=== PATIENT | female | born 1980 | race Caucasian/White ===

== ENCOUNTER 2024-11-17 03:17 | Day surgery (SDC) | payer OTHER, SELFPAY ==
--- OUTSIDE RECORDS SUMMARY | 2024-10-21 10:00 | XMS_ITS ---
Author Organization 1 OF Kaylen ortega [facility] Address [address] [address] Care Team Providers Care Trade Manager Name Role Phone Simba Carrera MD Primary Care Provider Michael Gallego Allergies Allergen (clinical drug ingredient) Drug/Non Drug Allergy documented on EMR Reaction Allergy Type Onset Date Status tetanus immune globulin Tetanus Immune Globulin Unknown Drug Allergy Active REASON FOR VISIT Rt foot bunion / metatarsal's bent in foot. Needing Surgery Vital Signs Height 69 in 10/21/2024 Weight 165 lbs 10/21/2024 BMI 24.36 kg/m2 10/21/2024 Encounters Encounter Location Date Provider Diagnosis 1 OF Kaylen Camilo [facility] [address] [address] 10/21/2024 Michael Camilo Assessments Encounter Date Diagnosis (ICD Code) Assessment Notes Treatment Notes Treatment Clinical Notes Section Notes 10/21/2024 Other Plan: - Detailed treatment plan: Discussed use of custom orthotics for arch support to address overpronation, which could be beneficial pre- and post-operatively. - Surgical options discussed: Two surgical approaches for bunion correction were reviewed. - 1. A traditional bunionectomy with a faster recovery (walking in a surgical boot immediately, back in a tennis shoe in approximately one month). Activity would be limited to 10-15 minutes per hour for the first 1-2 weeks. - 2. A more extensive procedure to address the first ray hypermobility, which involves a longer recovery and higher complication risk but can provide a significant correction. - Recommended proceeding with surgery sooner rather than later to prevent progression to a hammertoe deformity and potential ligamentous rupture of the second MTPJ. - Lifestyle or self-care recommendations: Advised that wider, more comfortable shoes can manage symptoms, but may not be cosmetically appealing. - Follow-up: Patient to determine timing for surgery. Discussed scheduling challenges around due to high demand. Patient will investigate her insurance situation (deductible renewal on 11/05, potential switch to 's [employer] insurance) and contact the office to schedule surgery when ready. Interventions: - No procedures performed during visit. Evaluation: - Not applicable. Additional Notes: - Patient education: Educated on the genetic component of bunions and the role of overpronation. Explained the pros and cons of different surgical procedures, including recovery expectations. Advised that a traditional procedure would likely provide the desired relief and does not typically require a period of non-weight bearing. - Any concerns or preferences expressed by the patient regarding their treatment plan: Expressed preference for a winter surgery () to align with work closure. Patient will investigate insurance coverage details before proceeding with scheduling. Plan Of Treatment Treatment Notes Assessment Notes Other Plan: - Detailed treatment plan: Discussed use of custom orthotics for arch support to address overpronation, which could be beneficial pre- and post-operatively. - Surgical options discussed: Two surgical approaches for bunion correction were reviewed. - 1. A traditional bunionectomy with a faster recovery (walking in a surgical boot immediately, back in a tennis shoe in approximately one month). Activity would be limited to 10-15 minutes per hour for the first 1-2 weeks. - 2. A more extensive procedure to address the first ray hypermobility, which involves a longer recovery and higher complication risk but can provide a significant correction. - Recommended proceeding with surgery sooner rather than later to prevent progression to a hammertoe deformity and potential ligamentous rupture of the second MTPJ. - Lifestyle or self-care recommendations: Advised that wider, more comfortable shoes can manage symptoms, but may not be cosmetically appealing. - Follow-up: Patient to determine timing for surgery. Discussed scheduling challenges around due to high demand. Patient will investigate her insurance situation (deductible renewal on 11/05, potential switch to 's [employer] insurance) and contact the office to schedule surgery when ready. Interventions: - No procedures performed during visit. Evaluation: - Not applicable. Additional Notes: - Patient education: Educated on the genetic component of bunions and the role of overpronation. Explained the pros and cons of different surgical procedures, including recovery expectations. Advised that a traditional procedure would likely provide the desired relief and does not typically require a period of non-weight bearing. - Any concerns or preferences expressed by the patient regarding their treatment plan: Expressed preference for a winter surgery () to align with work closure. Patient will investigate insurance coverage details before proceeding with scheduling. Next Appt Details Provider Name:Michael Camilo, 12/23/2024 03:00:00 PM, [address], [place], [address], Provider Name:Michael Camilo, 01/20/2025 09:00:00 AM, [address], [place], [address], History and Physical Notes * HPI (History of Present Illness) Category Sub-Category Detail Notes Category Not es MA assisting with visit: Chart Prep Purnima Examination Category Sub-Category Detail Notes Category Not es General Examination Mental status: Cooperative, Oriented to person, place and time, Mood and affect: normal, Judgement and intellect: normal with appropriate response to questions Shoes today: tennis shoes Constitutional / Appearance: No acute di stress , Well nourished, Appropriate personal hygiene Lower Extremity VASCULAR: Pulses: DP and PT pulse s, palpable, bilateral Temperature gradient: warm from proximal to distal, bilateral Pedal hair: present, bilateral Capillary refill at distal toes less mercedes n 3 seconds Lower Extremity NEURO: Neurological status: norm al sensation to sharp/ dull with normal and symmetric muscle tone bilateral Lower Extremity MSK: Left lower extremit y inspection and palpation: No palpable masses or nodules noted. Right lower extremity inspec tion and palpation: No palpable masses or nodules noted. Gait Gait unremarkable wi th normal posture, propulsion and balance Diagnostic Studies: X-rays of left lower extremi ty: 3 views of left foot: Significant findings include: X-rays of right lower extremity: 3 views of right foot: , Significant findings include: Lower Extremity DERM: Skin: well hydra dean , no suspicious lesions, without interdigital maceration, bilateral Progress Notes * Jennifer ELLISDOB:[birth year] (44 yo F)Acc No.[id number]:10/21/2024 Progress Notes Patient: Jennifer Leblanc Provider: Kaylen Camilo DPM :1980 A ge:44 Y S ex:Female Date:10/21/2024 Address:[address] [place], [place] [id number] Pcp:Simba Carrera MD Subjective: * Chief Complaints: * R t foot bunion / metatarsal's bent in foot. Needing Surgery * HPI: Janet Sorensen assisting with visit:: 44 y/o female PTO for right foot pain, mostly at the RT bunion, radiating through top of her foot.? - Presents for evaluation of bunions, referred by Dr. Solis who felt the case was complex due to concern for turned metatarsals. - Right foot bunion present for 10-12 years. Reports discomfort and pain after 4-5 hours of standing. - No significant pain reported in the left foot. - PMHx: Possible fracture to the right ankle/leg at age 12. Prior evaluation for leg length discrepancy ~12 years ago, prescribed shoe inserts which were discontinued after one week due to back pain. - Family Hx: Sister had bunion surgery with a good outcome. - Medications: Not discussed. 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 Wears wider shoes, men's tennis shoes, or skate shoes to accommodate the bunion, but notes they are flat and not very comfortable. Has worn holes in shoes at the bunion site. - Allergies: Not discussed. Chart Prep Keke harper. * Medical History: Irritable bowel syndrome (IBS) Anxiety Medical History Verified * Surgical History: No Surgical History documented. Surgical History verified. * Hospitalization/Major Diagno stic Procedure: No Hospitalization Documented. Hospitalization Verified. * Family History: N o Family History documented.. F amily History Verified.. * Social History: Social History Verified. No Social History documented. * Medications: N one * Allergies: T etanus Immune GlobulinyesAllergies Verified. Objective: * Vitals: W t:165lbs, Wt-k.84 kg, Ht:69in, BMI:24.36Index. * Examination: G eneral Examination: Constitutional / Appearance: N o acute distress , Well nourished, Appropriate personal hygiene. Mental status: C ooperative, Oriented to person, place and time, Mood and affect: normal, Judgement and intellect: normal with appropriate response to questions. Shoes today: t shan shoes. L ower Extremity VASCULAR: : Pulses: D P and PT pulses, palpable, bilateral. Temperature gradient: w arm from proximal to distal, bilateral. Pedal hair: p resent, bilateral. Capillary refill at distal toes l ess than 3 seconds. ? L ower Extremity DERM: : Skin: w ell hydrated , no suspicious lesions, without interdigital maceration, bilateral. L ower Extremity NEURO: : Neurological status: n ormal sensation to sharp/ dull with normal and symmetric muscle tone bilateral. L ower Extremity MSK: : Gait G ait unremarkable with normal posture, propulsion and balance. Left lower extremity inspection and palpation: N o palpable masses or nodules noted.. Right lower extremity inspection and palpation: N o palpable masses or nodules noted. . D iagnostic Studies: : X-rays of left lower extremity: 3 views ofleftfoot: Significant findings include: . X-rays of right lower extremity: 3 views ofrightfoot: , Significant findings include: . Plan: * Treatment: * Preventive Medicine: Counseling: C are goal follow-up plan: BMI counseling provided to patient:?Lifestyle education * Billing Information: * Procedure Codes: 35412 X-RAY FOOT (3 views). Modifiers: LT 28111 X-RAY FOOT (3 views). Modifiers: RT Images * B/L foot photos * Electronic signature of Bita Camilo DPM on 11/17/2024 at 03:20 AM CDT Sign off status: Pending * Provider: Kaylen Camilo DPM Date: 0 10/21/2024 Generated for Destini chan/Sami/eThernesto on: 1 03:20 AM CDT
[2024-11-11 10:37] VITALS: BMI 24.3
--- NOTE | 2024-11-11 11:02 | PC.NURSE ---
[facility] has started construction of its new state of the art ER which will open Spring 2026. With this, we anticipate parking may be a challenge for some our surgical patients and families. Parking spaces are limited but are available for all Surgical, obstetrics, and ER patients sharing this lot. If you arrive and find you are having a hard time finding a parking space, please note that we understand the challenges, please drive around the hospital and park near Hospital Entrance 1. When you enter this entrance, you can ask a volunteer to direct or take you back to the surgical waiting area to check in. We appreciate everyone?s understanding of these expected challenges while we build for your future. Report to the Outpatient Waiting Room, entrance under the green pavilion located off [address], at time 0600 on 11-17-24. Planned Procedure Time: 0730.? Time changes happen often and if your time is changed the preop area will call you the afternoon before. - You and your visitor will be asked to self-screen and do not enter if you have any COVID symptoms. Please call surgeon if you need to reschedule. - A mask is optional within the hospital at this time. Patients may have clear liquids (water, carbonated beverages, clear teas, apple juice) until 3 hours prior to surgery with a maximum of 20 ounces. 0430 - No food from midnight until time of surgery and no smoking, or chewing tobacco (or any form of nicotine). No chewing gum, candy or mints. - Infants may have breast milk until 4 hours before surgery, infant formula 6 hours prior to surgery. - Children will be allowed to drink immediately following surgery.? If applicable, please bring a bottle or sippy cup to assist with drinking. Juice, water, soda, and popsicles are readily available.? For infants on formula, please bring formula the day of surgery.? Pacifiers are allowed. Take only the following medications with a SIP of water on the morning of surgery: NONE DO NOT STOP ANY OF YOUR OTHER PRESCRIPTION MEDICATIONS PRIOR TO SURGERY EXCEPT THE FOLLOWING Hold all vitamins and supplements for 3 days per anesthesiologist. Medications to discontinue per physician: N/A Please no make-up, nail icelandic, hairspray, perfume, deodorant, or body powder the day of surgery.? No jewelry (including any body piercings) or valuables the day of surgery, leave them at home.? Please take a shower or bath the night before, or the morning of, surgery with an antibacterial soap.? Wear comfortable, loose fitting clothing.? Children are encouraged to wear pajamas. - Jewelry must be removed prior to entering the operating room.? Rings and piercings that are not removed may be cut off. - The hospital will not accept responsibility for valuables.? - Please leave all valuables, including medications, at home the day of surgery. If you are going home after surgery, a licensed lokie driver must drive you home.? - NO public transportation without another adult if you receive anesthesia. - We recommend that an adult stay with you for 24 hours following discharge. - We also recommend that you do not drive, make important decision, drink alcoholic beverages, or take any drugs that were not prescribed by your health care provider for at least 24 hours after your discharge time. For Pediatric surgeries, we recommend two adults accompany the child home. Follow any additional instructions given to you from your surgeon. Telephone instructions given to Jennifer Ellis and asked if any additional questions and then verbalized understanding. Patient advised to call surgeon office or pre surgery nurse liaison [phone] if any additional questions.
--- OUTSIDE RECORDS SUMMARY | 2024-11-17 03:20 | XMS_ITS | Clinical Summary ---
Author Organization [facility] [address] [place] [address] [address] [address] [place] [address] Care Team Providers Care Fusing Machine Operator Name Role Phone Simba Carrera MD Primary Care Provider Allergies Active Allergy Reactions Criticality Noted Date Comments Dpt-Haemophilus Ps(Tet.Conj.) Shortness of Breath/Wheezing High 12/12/2022 DPT immunization- happened as a child per patient. Medications L. acidophilus/L. rhamnosus (PROBIOTIC ORAL) Take by mouth. 1 probiotic orally daily Active linaCLOtide (LINZESS) 145 mcg capsuleIndication s:Slow transit constipation Take 1 Capsule (145 mcg) by mouth daily before breakfast. 90 Capsule 2 4 Active Active Problems Problem Noted Date Diagnosed Date Slow transit constipation 11/08/2022 Change in bowel habit 11/08/2022 Encounters Date Type Department Care Team Description 08/20/2024 External Device Data [facility]STRACTION Provider, Abstract 08/19/2024 External Device Data [facility] Provider, Abstract from Last 3 Months Family History Medical History Relation Name Comments Diabetes Maternal Grandmother Thyroid Disease Mother Thyroid Disease Sister Relation Name Status Comments Maternal Grandmother Mother Sister Social History Tobacco Use Types Packs/Day Years Used Date Smoking Tobacco: Every Day Cigarettes 0.5 25 Tobacco Cessation:Ready to Q uit: Not Asked; Counseling Given: Not Answered Alcohol Use Standard Drinks/Week Comments Not Currently 4 (1 standard drink = 0.6 oz pur e alcohol) Feeling Safe Answer Date Recorded Are you in a relationship wi th someone who hurts you emotionally and/or physically? No 12/19/2022 Comments No Sex and Gender Information Value Date Recorded Sex Assigned at Female 11/15/2022 11:31 AM CDT Legal Sex Female 6:35 AM CDT Gender Identity Female 11/15/2022 11:31 AM CDT Sexual Orientation Straight 11/15/2022 11 :31 AM CDT Last Filed Vital Signs Vital Sign Reading Time Taken Comments Blood Pressure 108/79 03/09/2023 2:39 PM LENS BLOCKER Pulse 68 03/09/2023 2:39 PM LENS BLOCKER Temperature 36.7 C (98 F) 03/09/2023 2:39 PM LENS BLOCKER Respiratory Rate 18 12/19/2022 12:15 PM LENS BLOCKER Oxygen Saturation 97% 03/09/2023 2:39 PM LENS BLOCKER Inhaled Oxygen Concentration - - Weight 78.5 kg (173 lb) 03/09/2023 2:39 PM LENS BLOCKER Height 172.7 cm (5' 8) 03/09/2023 2:39 PM LENS BLOCKER Body Mass Index 26.3 03/09/2023 2:39 PM LENS BLOCKER Plan of Treatment Health Maintenance Due Date Last Done Comments DTAP/TDAP/TD VACCINES (1 - Tdap) 06/03/1999 HEPATITIS B VACCINES (1 of 3 - 19+ 3-dose series) 06/03/1999 HPV/Cotest (21-29) 2001 HPV VACCINES (1 - 3-dose SCD M series) 06/03/2007 CERVICAL CANCER SCREENING 2010 HPV/Cotest (30-65) 2010 PAP SMEAR 2010 BREAST CANCER SCREENING 02/23/2024 02/22/19 24, 02/22/2023, 01/30/2023, Additional history exists INFLUENZA VACCINE (#1) 2024 COLORECTAL SCREENING 12/19/2029 12/19/2022, 12/19/2022, 12/19/2022 Procedures Procedure Name Priority Date/Time Associated Diagnosis Comments COLONOSCOPY REPORT 12/19/2022 12 :51 PM LENS BLOCKER from Last 3 Months or Most Recently Relevant to Health Maintenance Results * COLONOSCOPY REPORT (12/19/2022 12:51 PM LENS BLOCKER) Narrative Procedure Note Remberto uHgo MD - 12/19/2022 12:51 PM CST [facility] Endoscopy Patient Name: Jennifer Ellis Procedure Date: 12/19/2022 Date of : 1980 Attending MD: Remberto Hugo MD, Procedure: Colonoscopy Indications: Change in bowel habits Providers: Remberto Hugo MD Referring MD: Simba Carrera MD Medicines: Monitored Anesthesia Care Complications: No immediate complications. Procedure: Informed consent was obtained for the procedure, including moderate sedation after risks were discussed. Based on the pre-procedure assessment, including review of the patient's medical history, medications, allergies, and review of systems, the patient was deemed to be an appropriate candidate for sedation. A timeout was performed. Continuous ECG monitoring, pulse oximetry, blood pressure monitoring, and direct observation were performed. The Colonoscope was introduced through the anus and advanced to the cecum, identified by appendiceal orifice and ileocecal valve. The colonoscopy was performed without difficulty. The patient tolerated the procedure well. The quality of the bowel preparation was good. The quality of the bowel preparation was evaluated using the BBPS (Poneto Bowel Preparation Scale) with scores of: Right Colon = 3, Transverse Colon = 3 and Left Colon = 3 (entire mucosa seen well with no residual staining, small fragments of stool or opaque liquid). The total BBPS score equals 9. Findings: The perianal and digital rectal examinations were normal. A diminutive polyp was found in the cecum. The polyp was sessile. The polyp was removed with a cold snare. Resection and retrieval were complete. The exam was otherwise without abnormality. Impression: - One diminutive polyp in the cecum, removed with a cold snare. Resected and retrieved. - The examination was otherwise normal. Recommendation: - Discharge patient to home (with escort). - Await pathology results. - Repeat colonoscopy in 7 years for surveillance based on pathology results. - Start [facility] Procedure Code(s): --- Professional --- 58990, Colonoscopy, flexible; with removal of tumor(s), polyp(s), or other lesion(s) by snare technique CPT copyright 2020 [employer]. All rights reserved. The codes documented in this report are preliminary and upon breaker hand review may be revised to meet current compliance requirements. Remberto Hugo MD 12/19/2022 12:51:40 PM This report has been signed electronically. Number of Addenda: [id number], [place] [address] Remberto Hugo MD GI PROCEDURE ORDERABLES Final Result from Last 3 Months or Most Recently Relevant to Health Maintenance Insurance Absolute Antibody [facility] [id number] Care Teams Fusing Machine Operator Relationship Specialty Start Date End Date Simba Carrera MD [address] [facility] [address] [place] [address] PCP - General Family Practice 10/31/22
--- OUTSIDE RECORDS SUMMARY | 2024-11-17 03:20 | XMS_ITS | Clinical Summary ---
Author Organization [facility] Address [address] [place] [address] Care Team Providers Care Scales Inspector Name Role Phone Simba Carrera MD Primary Care Provider [phone] Allergies No known active allergies Medications ketorolac (TORADOL) 10 mg tablet Take 1 tablet (10 mg total) by mouth every 6 (six) hours as needed for pain 20 tablet 03/18/2024 Active Social History Tobacco Use Types Packs/Day Years Used Date Smoking Tobacco: Never Assessed Personal Safety Answer Date Recorded Have you ever been in or are you currently in a harmful physical or emotional relationship or is someone making you feel afraid or unsafe? Denies 03/18/2024 Comments Unknown Sex and Gender Information Value Date Recorded Sex Assigned at Not on file Legal Sex Female 6:09 PM OFFBEARER Gender Identity Not on file Sexual Orientation Not on file Last Filed Vital Signs Vital Sign Reading Time Taken Comments Blood Pressure 138/90 03/18/2024 9:55 PM OFFBEARER Pulse 60 03/18/2024 9:55 PM OFFBEARER Temperature 36.7 C (98.1 F) 03/18/2024 5:33 PM OFFBEARER Respiratory Rate 18 03/18/2024 9:55 PM OFFBEARER Oxygen Saturation 99% 03/18/2024 9:55 PM OFFBEARER Inhaled Oxygen Concentration - - Weight 76 kg (167 lb 8.8 oz) 03/18/2024 5:33 PM OFFBEARER Height 175.3 cm (5' 9) 03/18/2024 5:33 PM OFFBEARER Body Mass Index 24.74 03/18/2024 5:33 PM OFFBEARER Plan of Treatment Health Maintenance Due Date Last Done Comments Cervical Cancer Screening 1980 Depression Screening 1980 Hepatitis C Screening 1980 DTaP/Tdap/Td Vaccine (1 - Tdap) 06/03/1991 Varicella Vaccines (1 of 2 - 13+ 2-dose series) 1993 Hepatitis B Screening 1998 Regular Well Visit/Exam 18-64 1998 HPV Vaccines (1 - 3-dose SCD M series) 06/03/2007 Breast Cancer Screening-Mammogram 01/31/2024 01/30/2023 Influenza Vaccine (#1) 2024 4, 11/22/2012 Pneumococcal vaccine <65 Aged Out No longer eligible based on patient's age to complete this topic Insurance CHOICE PLUS Care Teams Scales Inspector Relationship Specialty Start Date End Date Simba Carrera MD [address] [facility] [address] [place] [address] PCP - General 09/20/18
--- OUTSIDE RECORDS SUMMARY | 2024-11-17 03:20 | XMS_ITS | Patient Health Record ---
Author Organization 1 OF Kaylen ortega [facility] Address [address] [facility] [address] [address] Care Team Providers Care Program Arranger Name Role Phone Simba Carrera MD Primary Care Provider Michael Gallego [phone] Allergies Allergen (clinical drug ingredient) Drug/Non Drug Allergy documented on EMR Reaction Allergy Type Onset Date Status tetanus immune globulin Tetanus Immune Globulin Unknown Drug Allergy Active Reason For Referral No Information Vital Signs Height 69 in 10/21/2024 Weight 165 lbs 10/21/2024 BMI 24.36 kg/m2 10/21/2024 Encounters Encounter Location Date Provider Diagnosis 1 OF Kaylen Camilo [facility] [address] [employer] [address] 10/21/2024 Michael Camilo 1 OF Kaylen Camilo Locationary [place] [address] [employer] [address] 11/10/2024 Michael Camilo Assessments Encounter Date Diagnosis (ICD [...] renewal on 11/05, potential switch to '[employer] insurance) and contact the office to schedule [...] before proceeding with scheduling. Plan Of Treatment Next Appt Details Provider Name:Michael Camilo, 12/23/2024 03:00:00 PM, [address], [place], [address], Provider Name:Michael Camilo, 01/20/2025 09:00:00 AM, [address] , [place], [address], Insurance Providers Payer Name Payer Address Payer Phone Subscriber Number Group Number Insured Name Patient Relationship to Insured Coverage Start Date Coverage End Date [facility] [address] [place], [place] [phone] [id number] Jennifer Ellis Self - patient is the insured Medical (General) History Medical History History ICD Code Irritable bowel syndrome (IBS) Anxiety
[2024-11-17 07:10] VITALS: BP 112/79; PULSE 67; RESP 14; TEMP 36.7; O2SAT 99; BMI 24.6
--- NOTE | 2024-11-17 07:21 | P.HP_ITS ---
History of Present Illness History of Present Illness Consent: Risks, benefits, and alternatives have been discussed and questions answered. Patient agrees to proceed with procedure. Chief complaint: abnormal uterine bleeding Narrative: Jennifer Ellis is a 44 year old female with with prolonged bleeding each month. It was recommended to undergo D&C hysteroscopy to further evaluate. Risks infection, bleeding, perforation, and possible pathology are discussed. Patient voices understanding and agrees to proceed. Review of Systems Review of Systems: not repeated day of surgery; patient states no changes in status [facility] Past Medical History Medical History (Updated 11/17/24 @ 07:25 by Mona Mccauley MD) History of depression History of molar History of ectopic History of miscarriage X2 (normal spontaneous vaginal delivery) Surgical History Surgical History (Updated 11/17/24 @ 07:24 by Mona Mccauley MD) History of bilateral tubal ligation Social History Social History Smoking packs per day: 0.5 Smoking cigarettes per day: 10.0 Years smoked: 25 Smoking pack-years: 12.50 Smoking status: Current every day smoker Tobacco type: cigarettes Second hand tobacco smoke exposure: Yes Alcohol intake: never Substance use: current Substance use type: marijuana Other substance usage details: sometimes Living arrangements: with family Spiritual care concerns: No Meds Home Medications and Allergies Home Medications ?Medication ?Instructions ?Recorded ?Confirmed ?Type No Home Medications 11/11/24 11/11/24 H istory Allergies Allergy/AdvReac Type Severity Reaction Status Date / Time DPT Allergy Severe Difficulty Uncoded 11/11/24 10:58 Breathing Exam Const: General: healthy appearing and alert Orientation/consciousness: patient oriented x3 Resp: Effort & Inspection: normal respiratory effort GI: GI Palp: Yes Soft to palpation, No Tenderness to palpation present (GI) and No Palpable mass present : External Female Exam: normal external appearance Speculum Exam - Vagina: normal appearance of the vagina and normal vaginal discharge Speculum Exam - Cervix: normal appearance of the cervix Bimanual exam- vagina & uterus: uterine size normal and consistency normal Bimanual Exam- Adnexa, other: normal adnexae and No adnexal tenderness Neuro: General: patient oriented x3 Assessment and Plan Assessment and plan (1) Menorrhagia: Code(s): N92.0 - Excessive and frequent menstruation with regular cycle Status: Acute Assessment and Plan: Plan to proceed with D&C hysteroscopy
--- NOTE | 2024-11-17 07:21 | WPDHPUPDATE1 ---
History and Physical Update Update Date/Time: 11/17/24 07:21 History and Physical has been reviewed, including an updated exam of the patient. There are NO changes in the patient's condition. Risks, benefits, and alternatives have been discussed and questions answered. Patient agrees to proceed with procedure.
[2024-11-17 07:32] LABS: BEDSIDEPREGUCG Negative (Negative)
[2024-11-17] MEDS: LACTATED RINGERS 1,000 ML 30 ML IV CONT (07:40)
[2024-11-17] MEDS: ACETAMINOPHEN 500 MG TABLET 1000 MG PO (07:48)
--- NOTE | 2024-11-17 08:12 | P.PNAN_ITS ---
Anes - Initial Pre Proc Eval Procedure: Operation Date: 11/17/24 09:00 Proposed Procedures p Hysteroscopy Dilation and Curettage - Mona Mccauley MD Date/Time: 11/17/24 08:12 Surgeon: Mona Mccauley MD Pre Op Diagnosis: abnormal uterine bleeding Patient Data Age: 44 Gender: F Height: 1.75 m Weight: 75.65 kg Last Vital Signs Temp 36.7 C 11/17/24 07:10 Pulse 67 11/17/24 07:10 Resp 14 11/17/24 07:10 BP 112/79 11/17/24 07:10 Pulse Ox 99 11/17/24 07:10 O2 Del Method Room Air 11/17/24 07:10 Allergies Allergy/AdvReac Type Severity Reaction Status Date / Time DPT Allergy Severe Difficulty Uncoded 11/17/24 07:27 Breathing Home Medications ?Medication ?Instructions ?Recorded ?Confirmed ?Type No Home Medications 11/11/24 11/11/24 H istory Laboratory Tests 11/17/24 07:31 POC Urine HCG, Qual Negative (Negative) HCG: negative Patient hx anesthesia problems: none Family hx anesthesia problems: none Results Review: All pre-operative results and documents have been reviewed as part of the pre- operative evaluation. [facility] Past Medical History Medical History History of depression History of molar History of ectopic History of miscarriage X2 (normal spontaneous vaginal delivery) Surgical History Surgical History History of bilateral tubal ligation Social History Social History Smoking packs per day: 0.5 Smoking cigarettes per day: 10.0 Years smoked: 25 Smoking pack-years: 12.50 Smoking status: Current every day smoker Tobacco type: cigarettes Second hand tobacco smoke exposure: Yes Alcohol intake: never Substance use: current Substance use type: marijuana Other substance usage details: sometimes Living arrangements: with family Spiritual care concerns: No Anes - Eval Final PreProcedure Day of Procedure 11/17/24 08:12 Patient weight: normal Heart: regular rate and rhythm Lungs: normal air movement Airway: Mallampati scale class II Neurological: alert and oriented Last oral intake: >/= 8 hours ASA classification: II Emergent: no Anesthetic plan: proceed Anesthesia type and monitoring: general GIVS and standard monitoring Results Review: All pre-operative results and documents have been reviewed as part of the pre- operative evaluation. Informed Consent: The patient's anesthetic plan and its attendant risks and benefits were discussed with the patient/family/POA. Questions were solicited and answers provided to the satisfaction of the patient/family/POA.
--- NOTE | 2024-11-17 09:21 | S_PTH ---
PATIENT: Jennifer Ellis LOC: [facility] U#:[id number] AGE/SX: 44/F ROOM: RE11/17/[address]: Mona Mccauley MD : 1980 BED: DIS: 11/17/2024 SPEC #: [id number] RECD: 11/17/24 10:40 STATUS: BETTY RENikky #: [id number] DAMARI: 11/17/24 09:[address]: Mona Mccauley DEPT: [facility] Surgical RECD BY: Maya Brandt Tissues: A - Endometrial Curettings Procedures: Hematoxylin and Eosin Stain Gross and Microscopic Level 4
--- NOTE | 2024-11-17 09:28 | W.PM.PROC2 ---
Procedure Note - Detailed Date of Procedure 11/17/24 Pre-op Diagnosis Menorrhagia Post-op Diagnosis Same Procedure Performed D&C hysteroscopy Surgeon Mona Mccauley MD Anesthesia MAC Findings Uterus sounds to 9cm and appears grossly normal. There was cervical stenosis. Description of Procedure The patient was taken to the operating room and placed under anesthesia in the dorsal lithotomy position. She was prepped and draped in the usual sterile fashion. [place] speculum was placed in the vagina and the cervix grasped on the anterior lip with a tenaculum. Upon attempting to place the sound internal cervical stenosis was encountered. The cervix was dilated to a 4 Hegar. The sound then passed without difficulty and the uterus was noted to be 9cm. The hysteroscope was then used to inspect the endometrium. No abnormalities are noted. The hysteroscope was removed. The sharp curette was used to curette the endometrium until a good uterine cry was noted in all areas. All instruments are removed. Sponge, needle, and instrument counts are correct per the OR staff. Patient was awakened from anesthesia and taken to recovery in stable condition. Estimated Blood Loss 5 Drains No Packing No Pathology Yes (Endometrial curettings) Complications No immediate complications Condition Stable Disposition PACU
[2024-11-17 09:29] VITALS: BP 96/65; PULSE 68; RESP 16; O2SAT 98
[2024-11-17 10:00] VITALS: BP 97/51; PULSE 58; O2SAT 99
[2024-11-17] MEDS: fentaNYL CITRATE INJ (*CRX) 100 MCG/2 ML VIAL 25 MCG IV PUSH (10:01)
[2024-11-17] MEDS: oxyCODONE HCL (*CRX) 5 MG TAB IR PO (10:26)
[2024-11-17 10:30] VITALS: BP 115/75; PULSE 51
== END 2024-11-17 10:58 | disposition home or self-care (01) ==
PROVIDERS: Visit Provider Obstetrics & Gynecology Gynecology
PROC: 0U5B8ZZ Destruction of Endometrium, Via Natural or Artificial Opening Endoscopic (ICD-10-PCS; CPT 58563; principal; 2024-11-17 09:00)
DX: N88.2 Stricture and stenosis of cervix uteri (principal); F32.A Depression, unspecified; F17.210 Nicotine dependence, cigarettes, uncomplicated; F12.90 Cannabis use, unspecified, uncomplicated; Z98.51 Tubal ligation status
CPT/HCPCS: 58558; 88305; A9270; J2003; J2250; J2704; J3010; J7120